=== PATIENT | female | born 1950 ===

== ENCOUNTER 2018-02-16 07:36 | Outpatient (CLI) | payer OTHER | END 2018-02-16 07:43 | disposition home or self-care (01) | LOC: SONOGRAMA 07:36 | DX: N28.1 Cyst of kidney, acquired (principal) ==

== ENCOUNTER 2018-08-08 07:11 | Outpatient (CLI) | payer OTHER | END 2018-08-08 07:18 | disposition home or self-care (01) | LOC: RAD 07:11 → RX STUDY 08:45 | DX: K29.40 Chronic atrophic gastritis without bleeding (principal); N28.1 Cyst of kidney, acquired ==

== ENCOUNTER 2020-12-14 11:38 | Outpatient (CLI) | payer OTHER | END 2020-12-14 14:45 | disposition home or self-care (01) | LOC: OFIC 805 11:38 | PROVIDERS: ATTEND Otolaryngology | DX: J30.89 Other allergic rhinitis (principal); R09.81 Nasal congestion ==

== ENCOUNTER 2021-06-23 08:26 | Outpatient (CLI) | payer OTHER | END 2021-06-23 08:27 | disposition home or self-care (01) | LOC: NUCLEAR 08:26 | PROVIDERS: ATTEND Internal Medicine | DX: R00.2 Palpitations (principal); I10 Essential (primary) hypertension ==

== ENCOUNTER 2025-02-19 09:36 | Outpatient (CLI) | payer OTHER | END 2025-02-19 09:44 | disposition home or self-care (01) | LOC: MAMO-SONO 09:36 | PROVIDERS: ATTEND Obstetrics & Gynecology Gynecology | DX: N64.4 Mastodynia (principal); N60.11 Diffuse cystic mastopathy of right breast; N60.12 Diffuse cystic mastopathy of left breast; Z12.31 Encounter for screening mammogram for malignant neoplasm of breast ==